=== PATIENT | female | born 1990 | race Hispanic/Latino ===

== ENCOUNTER 2017-03-02 23:05 | Emergency (ER) | payer OTHER ==
[2017-03-02] MEDS ORDERED: EPINEPHrine- 1 MG in Sodium Chloride 0.9% 250 ML IVPB ONE (23:56)
--- NOTE | 2017-03-03 00:08 | ED PDOC ---
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 Physical Exam - Reviewed Nursing Documentation Reviewed: Yes Vital Signs Reviewed: Yes - Physical Exam Appears: Positive for: In Acute Distress (CPR in progress, unresponsive) Head Exam: Positive for: ATRAUMATIC, NORMOCEPHALIC Skin: Positive for: Pallor (and cold) Eye Exam: Positive for: Other (fixed and dilated without corneal reflex) ENT: Positive for: Other (ETT in place, coffee ground appearing fluid in tube, suctioned) Neck: Positive for: Trachea Midline Cardiovascular/Chest: Negative for: Edema, Other (audible cardiac impulse) Respiratory: Positive for: Other (breath sounds via ambubag RIGHT > LEFT, ETT pulled back --> equal BS) Gastrointestinal/Abdominal: Positive for: Soft. Negative for: Distended Back: Positive for: Normal Inspection Extremity: Positive for: Other (IO in place LEFT upper humerus and LEFT proximal tibia, immobile, no visible extravasation or redness). Negative for: Swelling Lymphatic: Negative for: Adenopathy Neurologic/Psych: Positive for: Other (Unresponsive to any stimuli) Medical Decision Making Medical Decision Making: ACLS protocol followed. ROSC x 3 with bradycardic rhythm quickly followed by PEA despite multiple vasopressors, IVF, ionotropes. Then meaghan PEA rhythm persisted with no ROSC despite prolonged cardiac arrest ACLS management. Time of called 12:01 Family arrived to ER and informed of ER course and patient's . Procedures - Central Line Central Line Lumen: triple (Emergent placement) Central Line Postion: femoral (R) Central Line Post Position: sutured, good blood return Disposition - Clinical Impression Clinical Impression: Cardiac arrest - Disposition Disposition Time: 00:05 Condition:
== END 2017-03-03 04:00 ==
LOC: H.ER 23:05
DX: I46.9 Cardiac arrest, cause unspecified (principal)